=== PATIENT | female | born 1970 | race Caucasian/White ===

== ENCOUNTER 2025-03-25 11:24 | Day surgery (SDC) | payer BC ==
[2025-03-25] MEDS: Lactated Ringers 1,000 ML IV SCH (11:58)
[2025-03-25] MEDS ORDERED: fentaNYL 50 MCG/ML SDV ONE (12:25)
[2025-03-25] MEDS ORDERED: Ondansetron 4 MG/2 ML SDV ONE (12:25)
[2025-03-25] MEDS ORDERED: Midazolam 1 MG/ML 2 ML SDV ONE (12:25)
[2025-03-25] MEDS ORDERED: Propofol 200 MG/20 ML SDV ONE ×2 (12:25)
[2025-03-25] MEDS ORDERED: Ketamine 200 MG/20 ML MDV ONE (12:25)
[2025-03-25 13:36] VITALS: BP 122/56; PULSE 72
== END 2025-03-25 13:46 | disposition home or self-care (01) ==
LOC: CC.SDS 11:24
PROVIDERS: ATTEND Family Medicine
DX: Z12.11 Encounter for screening for malignant neoplasm of colon (principal); D12.2 Benign neoplasm of ascending colon; K63.5 Polyp of colon; E11.22 Type 2 diabetes mellitus with diabetic chronic kidney disease; N18.9 Chronic kidney disease, unspecified; K57.30 Diverticulosis of large intestine without perforation or abscess without bleeding; Z80.0 Family history of malignant neoplasm of digestive organs; Z98.0 Intestinal bypass and anastomosis status; Z90.49 Acquired absence of other specified parts of digestive tract; Z88.1 Allergy status to other antibiotic agents; Z88.0 Allergy status to penicillin; Z79.899 Other long term (current) drug therapy
CPT/HCPCS: 00811; J2250; J2405; J2704; J3010; J3490; J7120